=== PATIENT | male | born 1980 | race Caucasian/White ===

== ENCOUNTER 2017-01-23 17:19 | Emergency (ER) | payer MEDICAID ==
[2017-01-23 17:55] LABS: BASOPHILS 0.1 % (0-2); EOSINOPHILS 0.4 % (0-7); HEMOGLOBIN 18.8 g/dL (13.5-17.5); IMMATURE GRANULOCYTES 0.4 % (0-5); LYMPHOCYTES 1.3 % (15-50); MCH 30.9 pg (26.0-34.0); MCV 93.8 fL (80.0-100.0); MEAN PLATELET VOLUME 10.3 fL (7.4-10.4); MONOCYTES 4.4 % (2-11); NEUTROPHILS 93.4 % (40-80); PLATELET COUNT 231 10x3/uL (130-400); RBC 6.08 10x6/uL (4.20-6.10); RDW 14.5 % (11.5-14.5); WBC 15.7 10x3/uL (4.8-10.8)
[2017-01-23 18:10] LABS: ALBUMIN 4.8 g/dL (3.4-5.0); ANION GAP 16.4 mmol/L (8-16); BILIRUBIN - TOTAL 0.95 mg/dL (0.2-1.3); CALCIUM 9.7 mg/dL (8.5-10.1); CREATININE - SERUM 2.2 mg/dL (0.6-1.3); POTASSIUM - SERUM 4.4 mmol/L (3.5-5.1); PROTEIN - SERUM 9.3 g/dL (6.4-8.2)
[2017-01-23 20:36] LABS: APPEARANCE CLOUDY (CLEAR); BACTERIA MANY /hpf (NONE SEEN); BILIRUBIN NEGATIVE (NEGATIVE); COLOR DK YELLOW (YELLOW); EPITHELIAL CELL CAST RARE /lpf (NONE SEEN); GLUCOSE NEGATIVE (NEGATIVE); GRANULAR CAST 0-5 /lpf (NONE SEEN); KETONE NEGATIVE (NEGATIVE); LEUKOCYTE ESTERASE TRACE (NEGATIVE); MUCUS <1+ /lpf (NONE SEEN); NITRITE NEGATIVE (NEGATIVE); PROTEIN 2+ mg/dL (NEGATIVE); SPECIFIC GRAVITY 1.025 (1.005-1.020); UROBILINOGEN NORMAL (NORMAL)
[2017-01-23 20:37] LABS: RED CELLS - URINE 0-5 /hpf (0-5)
[2017-01-23 20:38] LABS: UDS - AMPHET POSITIVE QUAL (NEGATIVE); UDS - BARB NEGATIVE QUAL (NEGATIVE); UDS - BENZO POSITIVE QUAL (NEGATIVE); UDS - COCAINE NEGATIVE QUAL (NEGATIVE); UDS - METH NEGATIVE QUAL (NEGATIVE); UDS - OPIATE NEGATIVE QUAL (NEGATIVE); UDS - PCP NEGATIVE QUAL (NEGATIVE); UDS - THC POSITIVE QUAL (NEGATIVE)
== END 2017-01-23 21:45 | disposition home or self-care (01) ==
LOC: D.ER 17:19
PROVIDERS: Emergency Medicine
DX: R19.7 Diarrhea, unspecified (principal); R11.10 Vomiting, unspecified; N17.9 Acute kidney failure, unspecified; N39.0 Urinary tract infection, site not specified; F19.10 Other psychoactive substance abuse, uncomplicated; F98.8 Other specified behavioral and emotional disorders with onset usually occurring in childhood and adolescence; F17.200 Nicotine dependence, unspecified, uncomplicated

== ENCOUNTER 2017-12-21 17:02 | Emergency (ER) | payer BC ==
[~2017-12-21] VITALS: Ht 167.6 cm; Wt 81.8 kg
[2017-12-21 17:03] VITALS: Ht 167.6 cm; Wt 81.8 kg
[2017-12-21] MEDS ORDERED: TYLENOL W/CODEI1 TAB PO (18:29)
[2017-12-21] MEDS ORDERED: VOLTAREN75 MG PO (18:29)
[2017-12-21 18:47] VITALS: BP 133/72
== END 2017-12-21 18:47 | disposition home or self-care (01) ==
LOC: D.ER 17:02
DX: S93.401A Sprain of unspecified ligament of right ankle, initial encounter (principal); W19.XXXA Unspecified fall, initial encounter; Y93.89 Activity, other specified; Y92.019 Unspecified place in single-family (private) house as the place of occurrence of the external cause

== ENCOUNTER 2019-10-02 11:48 | Emergency (ER) | payer MEDICAID ==
[2017-12-21 17:03] VITALS: Ht 167.6 cm
[~2019-10-02 11:48] MED LIST: TYLENOL W/CODEI1 TAB PO; VOLTAREN75 MG PO
[2019-10-02] MEDS ORDERED: PROZAC20 MG PO (12:04)
[2019-10-02 12:18] VITALS: BP 144/60
== END 2019-10-02 12:19 | disposition home or self-care (01) ==
LOC: D.ER 11:48
DX: F32.9 Major depressive disorder, single episode, unspecified (principal)